=== PATIENT | female | born 1985 | race Caucasian/White ===

== ENCOUNTER 2016-09-01 07:38 | Inpatient (IN) | payer BC ==
[2016-09-01] MEDS ORDERED: OXYTOCIN 10 UNIT/ML 1 ML VIAL IM PRN (07:56)
[2016-09-01] MEDS ORDERED: METHYLERGONOVINE 0.2 MG/ML 1 ML AMP IM PRN (07:56)
[2016-09-01] MEDS ORDERED: LIDOCAINE 1% (PF) 10 MG/ML (30 ML SDV) SQ PRN (07:56)
[2016-09-01] MEDS ORDERED: CARBOPROST TROMETHAMINE 250 MCG/ML 1 ML AMP IM PRN (07:56)
[2016-09-01] MEDS ORDERED: TERBUTALINE 1 MG/ML VIAL SQ PRN (07:56)
[2016-09-01] MEDS ORDERED: LACTATED RINGERS 1,000 ML IV SCH (08:00)
[2016-09-01 08:48] LABS: Basophils % (A) 0 %; CH 26.5; CHCM 32.1; Eosinophils % (A) 0 %; HCT 35.6 % (34.0-46.0); HDW 3.87; HGB 11.1 gm/dL (11.4-16.0); Hypochromasia Moderate; Luc # (Auto) 0.19; Luc % (Auto) 2; Lymphocytes # (A) 1.2 k/uL (1.0-4.8); Lymphocytes % (A) 12 %; MCH 25.9 pg (25.0-35.0); MCHC 31.2 g/dL (31.0-37.0); MCV 82.9 fL (80.0-100.0); Mean Platelet Volume 8.2; Monocytes # (A) 0.5 k/uL (0-1.0); Monocytes % (A) 5 %; Neutrophils # (A) 8.5 k/uL (1.3-7.7); Neutrophils % (A) 81 %; Poikilocytosis Slight; RBC 4.29 m/uL (3.80-5.40); RDW 13.7 % (11.5-15.5); WBC 10.5 k/uL (3.8-10.6); WBC (Perox) 11.23
[2016-09-01] MEDS ORDERED: SIMETHICONE 80 MG CHEWABLE PO PRN (09:31)
[2016-09-01] MEDS ORDERED: ZOLPIDEM 5 MG TAB PO PRN (09:31)
[2016-09-01] MEDS ORDERED: diphenhydrAMINE 25 MG CAP PO PRN (09:31)
[2016-09-01] MEDS ORDERED: diphenhydrAMINE 50 MG/ML 1 ML VIAL IVP PRN ×2 (09:31)
[2016-09-01] MEDS ORDERED: HYDROCORTISONE 2.5% RECTAL CREAM 30 GM TUBE RECTAL PRN (09:31)
[2016-09-01] MEDS ORDERED: LANOLIN CREAM 5 GM TUBE TOPICAL PRN (09:31)
[2016-09-01] MEDS ORDERED: BENZOCAINE/MENTHOL SPRAY 1 GM/SPRAY AEROSOL TOPICAL PRN (09:31)
[2016-09-01] MEDS ORDERED: Acetaminophen-Codeine 300-30mg TAB PO PRN ×2 (09:31)
[2016-09-01] MEDS ORDERED: diphenhydrAMINE 50 MG CAP PO PRN (09:31)
[2016-09-01] MEDS ORDERED: ACETAMINOPHEN TAB 325 MG TAB PO PRN (09:31)
[2016-09-01] MEDS ORDERED: WITCH HAZEL 1 EACH MED..PAD TOPICAL PRN (09:31)
--- NOTE | 2016-09-01 09:38 | P.HPOB ---
History of Present Illness H&P Date: 09/01/16 Chief Complaint: Labor 30 year old presents at 39 weeks 6 days in labor. Her cervix is 5/80/-2 and she is coleen every 3-5 minutes. heart tones are 135-140 with moderate variability and reactive. Review of Systems All systems: negative Constitutional: Denies chills, Denies fever Eyes: denies blurred vision, denies pain Ears, nose, mouth and throat: Denies headache, Denies sore throat Cardiovascular: Denies chest pain, Denies shortness of breath Respiratory: Denies cough Gastrointestinal: Denies abdominal pain, Denies diarrhea, Denies nausea, Denies vomiting Genitourinary: Denies dysuria, Denies hematuria Musculoskeletal: Denies myalgias Integumentary: Denies pruritus, Denies rash Neurological: Denies numbness, Denies weakness Psychiatric: Denies anxiety, Denies depression Endocrine: Denies fatigue, Denies weight change Past Medical History Additional Past Medical History / Comment(s): Crohn's disease. Obstetric history: She has had 3 vaginal deliveries. THis is her fourth and she has had care with me since 15 weeks. Normal anatomy US. A+, normal 1hr GTT, GBS neg. Past Surgical History: Appendectomy Additional Past Surgical History / Comment(s): colectomy Medications and Allergies Home Medications Medication Instructions Recorded Confirmed Type No Known Home Medications [No 09/01/16 09/01/16 History Known Home Medications] Allergies Allergy/AdvReac Type Severity Reaction Status Date / Time No Known Allergies Allergy Verified 09/01/16 07:54 Exam Osteopathic Statement: *. No significant issues noted on an osteopathic structural exam other than those noted in the History and Physical/Consult. - Vital Signs Vital signs: Intake and Output 08/31/16 09/01/16 09/01/16 22:59 06:59 14:59 Other: Weight 85.275 kg Patient Weight 09/02/16 07:59 Weight 85.275 kg heart: RRR Lungs: CTAB Abdomen: soft, nontender between contractions Extremeties: neg young's Results Result Diagrams: 09/01/16 08:00 Abnormal Lab Results - Last 24 Hours (Table) 09/01/16 Range/Units 08:00 Hgb 11.1 L (11.4-16.0) gm/dL Neutrophils # 8.5 H (1.3-7.7) k/uL Assessment and Plan (1) Normal labor Status: Acute Plan: 1. expectant management 2. anticipate normal vaginal delivery.
--- NOTE | 2016-09-01 09:41 | P.PROBDLV ---
Vaginal Delivery Note - . Vaginal Delivery Note: 30 yo presents at 39 weeks 6 days in active labor. Her cervix is 5/80/-2 and she is coleen every 3-5 minutes. heart tones 140-145 with moderate variability and reactive. Amniotomy was perfomed around 830am and she became complete soon after. She pushed, and delivered a viable female over intact perineum. Head delivered OA, nuchal cord 2 easily reduced, anterior shoulder delivered gentle downward traction followed by posterior shoulder and rest of body. Nose and mouth bulb suctioned, cord clamped and cut , infant placed mother's abdomen. Apgars 9, 9, weight 7 pounds 10.8 ounces. Placenta delivered spontaneously, intact with three-vessel cord. Vagina, cervix , and perineum were inspected. No lacerations noted. Estimated blood loss 150 mL.
[2016-09-01] MEDS ORDERED: OXYTOCIN 30 UNITS/500 ML NS 30 UNIT in SALINE 1 500ML.BAG IV SCH (09:45)
[2016-09-01] MEDS ORDERED: MEASLES-MUMPS-RUBELLA VACC/PF 12,500 UNIT/0.5 ML VIAL SQ ONE (09:48)
[2016-09-01] MEDS: IBUPROFEN 600 MG TAB PO PRN ×3 (09:59→23:50)
[2016-09-01 10:47] VITALS: BMI 27.7
[2016-09-01] MEDS: SENNOSIDES-DOCUSATE SODIUM 1 EACH TAB PO SCH (20:04)
[2016-09-02 08:09] VITALS: BP 127/89; PULSE 71; RESP 16; TEMP 98.1
--- NOTE | 2016-09-02 10:02 | P.DS ---
Providers Date of admission: 09/01/16 07:59 Expected date of discharge: 09/02/16 Attending physician: Lea Ryan - Discharge Diagnosis(es) (1) Normal labor Current Visit: Yes Status: Resolved (2) Normal vaginal delivery Current Visit: Yes Status: Acute Hospital Course: Pt presented in active labor. She underwent a normal vaginal delivery and had an uncomplicated post course. She will be discharged home PPD #1 in stable condition to follow up with me in 6 weeks. Plan - Discharge Summary New Discharge Prescriptions: Acetaminophen-Codeine 300-30mg [Tylenol w/codeine #3] 2 each PO Q4HR PRN #30 tab PRN Reason: Moderate To Severe Pain Ibuprofen [Motrin] 600 mg PO Q6HR PRN #30 tab PRN Reason: Mild Pain Or Fever >= 100.5 Discharge Medication List Acetaminophen-Codeine 300-30mg [Tylenol w/codeine #3] 2 each PO Q4HR PRN #30 tab 09/02/16 [Rx] Ibuprofen [Motrin] 600 mg PO Q6HR PRN #30 tab 09/02/16 [Rx] Follow up Appointment(s)/Referral(s): Lea Ryan DO [Doctor of Osteopathic Medicine] - 6 Weeks Discharge Disposition: HOME SELF-CARE
[2016-09-02] MEDS: SENNOSIDES-DOCUSATE SODIUM 1 EACH TAB PO SCH (10:08)
== END 2016-09-02 11:34 | disposition home or self-care (01) | DRG 775 ==
LOC: FBPOP 07:38 → 4FBP 07:59
PROVIDERS: ADMIT Obstetrics & Gynecology; ATTEND Obstetrics & Gynecology
PROC: 10E0XZZ Delivery of Products of Conception, External Approach (ICD-10-PCS; principal; 2016-09-01)
PROC: 10907ZC Drainage of Amniotic Fluid, Therapeutic from Products of Conception, Via Natural or Artificial Opening (ICD-10-PCS; 2016-09-01)
PROC: 3E0134Z Introduction of Serum, Toxoid and Vaccine into Subcutaneous Tissue, Percutaneous Approach (ICD-10-PCS; 2016-09-01)
DX: O69.81X0 Labor and delivery complicated by cord around neck, without compression, not applicable or unspecified (principal); K50.90 Crohn's disease, unspecified, without complications; O99.62 Diseases of the digestive system complicating childbirth; Z37.0 Single live birth; Z3A.39 39 weeks gestation of pregnancy; Z23 Encounter for immunization; Z90.49 Acquired absence of other specified parts of digestive tract
CPT/HCPCS: 59025; 85025; 88307; 90471; 90707; 99213

== ENCOUNTER → 2019-10-23 | Outpatient (CLI) | payer OTHER ==
[2019-10-23 11:39] LABS: Anisocytosis Slight; HCT 36.3 % (34.0-46.0); HGB 10.8 gm/dL (11.4-16.0); Hypochromasia Marked; MCH 22.8 pg (25.0-35.0); MCHC 29.9 g/dL (31.0-37.0); MCV 76.2 fL (80.0-100.0); Microcytosis Slight; Platelet Count 526 k/uL (150-450); RBC 4.76 m/uL (3.80-5.40); RDW 16.6 % (11.5-15.5); WBC 10.2 k/uL (3.8-10.6)
[2019-10-23 13:42] LABS: Erythrocyte Sedimentation Rate 6 mm/hr (0-20)
[2019-10-23 16:02] LABS: Hepatitis B Surface AB- Quant 442.7 mIU/mL; Hepatitis B Surface Antibody Reactive (Non-Reactive); Hepatitis B Surface Antigen Non-Reactive (Non-Reactive)
[2019-10-23 16:20] LABS: Folate, Serum >24.0 ng/mL
[2019-10-23 16:21] LABS: ALT 20 U/L (8-44); AST 14 U/L (13-35); Albumin/Globulin Ratio 1.71 (1.60-3.17); Alkaline Phosphatase 62 U/L (41-126); BUN/Creat Ratio 12.86 Ratio (12.00-20.00); C Reactive Protein <0.4 mg/dL (0.0-0.8); Calcium 9.7 mg/dL (8.7-10.3); Carbon Dioxide 27.6 mmol/L (21.6-31.8); Chloride 105 mmol/L (96-109); Globulin 2.4 g/dL (1.6-3.3); Glucose 109 mg/dL (70-110); Potassium 4.5 mmol/L (3.5-5.5); Sodium 143 mmol/L (135-145); Total Bilirubin 0.4 mg/dL (0.3-1.2); Total Protein 6.5 g/dL (6.2-8.2)
== END | disposition home or self-care (01) ==
LOC: LABWHC1 10:50
PROVIDERS: ATTEND Internal Medicine
DX: K50.80 Crohn's disease of both small and large intestine without complications (principal)
CPT/HCPCS: 36415; 80053; 82306; 82607; 82746; 85027; 85652; 86140; 86480; 86704; 86706; 87340